=== PATIENT | female | born 1940 | race Caucasian/White ===

== ENCOUNTER 2019-01-03 11:06 | Inpatient (IN) | payer MEDICAID ==
[~2019-01-03] VITALS: Ht 149.9 cm; Wt 66.0 kg
[2019-01-03] MEDS ORDERED: SODIUM CHLORIDE 0.9% 1L BAG IV* STA (11:17)
[2019-01-03] MEDS ORDERED: VANCOMYCIN 1 GM (PMX) 250 ML IVPB ONE (12:00)
[2019-01-03] MEDS ORDERED: CEFEPIME 1GM/50 ML (PMX) 50 ML IVPB ONE (12:00)
[2019-01-03] MEDS ORDERED: METF850T13 PO (12:01)
[2019-01-03] MEDS ORDERED: LOSA25TA12 PO (12:02)
[2019-01-03] MEDS ORDERED: KETOROLAC 15 MG INJ IV STA (12:32)
[2019-01-03] MEDS ORDERED: ACETAMINOPHEN 325 MG TAB PO ONE (13:00)
--- NOTE | 2019-01-03 14:52 | ERD ---
ER Documentation Chief Complaint Chief Complaint FEVER , CHILLS , ABD PAIN , DIARRHEA , ONSET LAST NIGHT HPI This is a 78-year-old female with a past medical history of hypertension, diabetes, CVA with mild residual right-sided deficits, who is presenting with several days of feeling generally unwell with general cramping bloating abdominal pain, nausea without vomiting and diarrhea. Last night, she also developed fever and chills. The patient reports that her diarrhea is loose, watery, brown and nonbloody. She does not endorse any recent travel. She does not endorse eating anything out of the ordinary. The patient was found to be tachycardic and febrile in the emergency department triage area. The patient does not endorse any dysuria or hematuria or urgency or frequency. The patient has had no headache or vision changes. The patient does not endorse neck or back pain. The patient denies lightheadedness or dizziness. The patient has had no chest pain or trouble breathing. The patient has had no focal deficits. The patient has had no weakness or numbness or tingling to the face or extremities. ROS All systems reviewed and are negative except as per history of present illness. Medications Home Meds Reported Medications Losartan Potassium* (Losartan Potassium*) Unknown Strength Tablet, PO BID, TAB PT GETS MEDS FROM [facility] SHE DOSNT KNOW THE STRENGTH 01/03/19 Metformin Hcl* (Metformin Hcl*) 850 Mg Tablet, 850 MG PO WITH BREAKFAST DINNE, #60 TAB 01/03/19 Allergies Allergies: Coded Allergies: No Known Allergy (Unverified , 01/03/19) PMhx/Soc History of Surgery: No Anesthesia Reaction: No Hx Neurological Disorder: Yes (CVA) Hx Respiratory Disorders: No Hx Cardiac Disorders: Yes (Hypertension, diabetes) Hx Psychiatric Problems: No Hx Miscellaneous Medical Probl: No Hx Alcohol Use: No Hx Substance Use: No Hx Tobacco Use: No Smoking Status: Never smoker FmHx Family History: No diabetes Physical Exam Vitals Vital Signs Date Temp Pulse Resp B/P (MAP) Pulse Ox O2 O2 Flow FiO2 Time Delivery Rate 01/03/19 103.4 12:40 01/03/19 103.4 121 24 141/86 94 Room Air 12:25 (104) 01/03/19 101.9 132 18 130/69 92 11:12 (89) Physical Exam Const: No apparent distress, well-developed, well-nourished Head: Normocephalic, Atraumatic Eyes: Normal Conjunctiva. Extraocular movements grossly intact. ENT: Normal External Ears, Nose and Mouth. Neck: Full range of motion. No meningismus. Resp: Clear to auscultation bilaterally, No wheezes, rales or rhonchi Cardio: Regular rhythm. Tachycardia. No murmurs, rubs or gallops Abd: Slightly distended. No tenderness. No guarding or rebound. Normal bowel sounds Skin: No petechiae or rashes Back: No midline tenderness. No CVA tenderness Ext: No cyanosis, or edema Neur: Awake and alert, oriented 4. Cranial nerves intact. Mild right-sided facial droop, chronic. Normal strength, sensation and coordination. Psych: Normal Mood and Affect Result Diagram: 01/03/19 1135 01/03/19 1135 Results 24 hrs Laboratory Tests Test 01/03/19 11:31 01/03/19 11:35 01/03/19 13:40 POC Venous Lactate 3.4 mmol/L White Blood Count 19.7 10^3/ul Red Blood Count 5.32 10^6/ul Hemoglobin 13.0 g/dl Hematocrit 40.7 % Mean Corpuscular Volume 76.5 fl Mean Corpuscular Hemoglobin 24.4 pg Mean Corpuscular 31.9 g/dl Hemoglobin Concent Red Cell Distribution Width 13.4 % Platelet Count 366 10^3/UL Mean Platelet Volume 10.4 fl Immature Granulocytes % 0.500 % Neutrophils % 80.0 % Lymphocytes % 9.2 % Monocytes % 8.5 % Eosinophils % 1.4 % Basophils % 0.4 % Nucleated Red Blood Cells % 0.0 /100WBC Immature Granulocytes # 0.090 10^3/ul Neutrophils # 15.8 10^3/ul Lymphocytes # 1.8 10^3/ul Monocytes # 1.7 10^3/ul Eosinophils # 0.3 10^3/ul Basophils # 0.1 10^3/ul Nucleated Red Blood Cells # 0.0 10^3/ul Prothrombin Time 13.7 Sec Prothrombin Time Ratio 1.1 INR International 1.04 Normalized Ratio Activated Partial Thromboplast 28.7 Sec Time Sodium Level 135 mmol/L Potassium Level 4.4 mmol/L Chloride Level 97 mmol/L Carbon Dioxide Level 22 mmol/L Anion Gap 16 Blood Urea Nitrogen 25 mg/dl Creatinine 1.69 mg/dl Est Glomerular Filtrat mL/min Rate mL/min Glucose Level 301 mg/dl Calcium Level 8.7 mg/dl Total Bilirubin 0.4 mg/dl Direct Bilirubin 0.00 mg/dl Indirect Bilirubin 0.4 mg/dl Aspartate Amino 21 IU/L Transf (AST/SGOT) Alanine 19 IU/L Aminotransferase (ALT/SGPT) Alkaline Phosphatase 136 IU/L Troponin I < 0.012 ng/ml Total Protein 7.7 g/dl Albumin 4.0 g/dl Globulin 3.70 g/dl Albumin/Globulin Ratio 1.08 Urine Color YELLOW Urine Clarity SLIGHTLY CLOUDY Urine pH 5.0 Urine Specific [place] 1.010 Urine Ketones NEGATIVE mg/dL Urine Nitrite POSITIVE mg/dL Urine Bilirubin NEGATIVE mg/dL Urine Urobilinogen NEGATIVE mg/dL Urine Leukocyte Esterase 2+ Raymond/ul Urine Microscopic RBC 2 /HPF Urine Microscopic WBC 18 /HPF Urine Squamous Epithelial Cells MODERATE /HPF Urine Transitional FEW /HPF Epithelial Cells Urine Bacteria MANY /HPF Urine Mucus FEW /HPF Urine Hemoglobin 1+ mg/dL Urine Glucose NEGATIVE mg/dL Urine Total Protein NEGATIVE mg/dl Current Medications Medications Dose Sig/Ilir Start Time Status Last (Trade) Ordered Route PRN Stop Time Admin Dose Reason Admin Sodium 1,910 ml BOLUS OVER 2 01/03/19 DC 01/03/19 Chloride HOURS STAT 11:17 11:36 (NS) IV* 01/03/19 11:22 Vancomycin 250 ml @ ONCE ONCE 01/03/19 DC 01/03/19 HCl 125 mls/hr IVPB 12:00 12:41 01/03/19 13:59 Cefepime HCl 50 ml @ ONCE ONCE 01/03/19 DC 01/03/19 100 mls/hr IVPB 12:00 12:00 01/03/19 12:29 650 mg ONCE ONCE 01/03/19 DC 01/03/19 Acetaminophen PO 13:00 12:40 (Tylenol 01/03/19 13:01 Tab) Ketorolac 15 mg ONCE STAT 01/03/19 DC 01/03/19 Tromethamine IV 12:32 12:40 (Toradol) 01/03/19 12:33 Ondansetron 4 mg ER BRIDGE 01/03/19 HCl (Zofran PRN IV 15:00 Inj) NAUSEA/VOMITI 01/04/19 14:59 NG 650 mg ER BRIDGE 01/03/19 Acetaminophen PRN PO 15:00 (Tylenol .MILD PAIN 01/04/19 14:59 Tab) 1-3 OR TEMP Procedures/MDM MDM The patient's presentation warrants further investigation. Previous medical records, if available, were reviewed. LABS The patient's laboratory testing was obtained and reviewed. No emergent treatment was required unless described below. CBC: Leukocytosis with shift, concerning for a systemic infection. Microcytosis without anemia. Normal platelet count. Chemistry: Elevated BUN and creatinine of unclear chronicity. No E/o severe acidosis or alkalosis or renal failure. Hyperglycemia without DKA. Mildly elevated alkaline phosphatase, likely reactive. PT/INR: No E/o significant coagulopathy Lactate: E/o severe sepsis Troponin: No E/o acute ischemia Urine: E/o acute infection with hematuria EKG EKG read by me: Rate/Rhythm: Sinus tachycardia at 129 bpm Intervals: Normal [place]: Normal Impression: No evidence of acute ischemia or arrhythmia IMAGING Imaging and Radiology interpretation reviewed. CXR FINDINGS: SUPPORT DEVICES: None CARDIAC AND MEDIASTINAL SILHOUETTES: Normal in size . There are thoracic aortic atherosclerotic calcifications. LUNGS AND PLEURAL SPACE: Diminished lung volumes. Left lower lobe scar or discoid atelectasis. No infiltrates, consolidation, pulmonary edema, or pleural effusion. PNEUMOTHORAX: None. OSSEOUS STRUCTURES: Unremarkable. IMPRESSION: No acute pulmonary disease. Left lower lobe scar or discoid atelectasis. Electronically viewed and signed by Tracie Pérez Physician on 01/03/2019 11:48 TREATMENT/DISPOSITION The patient presentation indicates severe sepsis. Patient does have evidence of urinary tract infection. The patient also endorses diarrhea. An intra- abdominal pathology is also possibility. Colitis versus gastroenteritis are certainly possibilities, but I do not feel the patient requires a CT scan at this time. The patient does not have abdominal tenderness on my exam. The patient does not have any evidence of peritonitis. The patient does not have clinical symptoms concerning for mesenteric ischemia or ischemic colitis. The patient does not have right upper quadrant tenderness, and I have low suspicion for gallstones, cholecystitis or biliary colic. The patient does not have any epigastric pain. I have low suspicion for gastritis, PUD or GERD. The patient does not have left upper quadrant tenderness. I have low suspicion for pancreatitis. The patient does not have any right lower quadrant tenderness, or periumbilical tenderness. I have low suspicion for appendicitis. The patient does not have any left lower quadrant tenderness, and I have low suspicion for diverticulosis or diverticulitis. The patient does not have any flank tenderness. The patient does not have gross hematuria. I have decreased suspicion for nephrolithiasis or renal colic. The patient does not have any palpable pulsatile mass or severe abdominal pain radiating to the back. I have low suspicion for aortic aneurysm, dissection or rupture. The patient was treated with a sepsis bolus of IV fluids, antibiotics, tylenol and toradol. SEPSIS NOTE SIRS Criteria: Leukocytosis, fever, tachycardia Infectious source: Intra-abdominal, UTI, diarrhea End organ damage indicated by: Lactate > 2.0 mmol/L SEPSIS MANAGEMENT Time to recognize sepsis: 1117. Time to recognize severe sepsis: 1135. Time to recognize septic shock: No septic shock at this time 3 HOUR BUNDLE Blood cultures x 2 before abx: Yes 30 ml/kg NS bolus Completed Initial lactate 3.4 Repeat lactate Pending CRITICAL CARE Critical care time 34 minutes Emergent fluid management while maintaining close respiratory support. Provision of immediate and broad-spectrum antibiotic therapy. Simultaneous assessment for possible sources in order to direct targeted therapy. Consideration for invasive and chemical support to prevent cardiopulmonary collapse. Critical care time is independent of procedures performed. The patient will be admitted to Panel in accordance with the patient's insurance. The patient was accepted by Dr. Flanagan at 1357PM on 01/03/2019. Disclaimer: Inadvertent spelling and grammatical errors are likely due to EHR/dictation software use and do not reflect on the overall quality of patient care. Note that the electronic time recorded on this note does not necessarily reflect the actual time of the patient encounter. Departure Diagnosis: Primary Impression: Severe sepsis Additional Impressions: UTI (urinary tract infection) Urinary tract infection type: acute cystitis Hematuria presence: with hematuria Qualified Codes: N30.01 - Acute cystitis with hematuria Diarrhea Diarrhea type: presumed infectious Qualified Codes: R19.7 - Diarrhea, unspecified Abdominal bloating Fever Fever type: unspecified Qualified Codes: R50.9 - Fever, unspecified Sinus tachycardia Lactic acidosis Leukocytosis Leukocytosis type: unspecified Qualified Codes: D72.829 - Elevated white blood cell count, unspecified Microcytosis SONYA (acute kidney injury) Hyperglycemia Condition: Serious BLAIRE TINEO MD Jan 03, 2019 14:52
[2019-01-03] MEDS ORDERED: ONDANSETRON 4 MG INJ IV PRN ×2 (15:00→15:30)
[2019-01-03] MEDS ORDERED: ACETAMINOPHEN 325 MG TAB PO PRN ×2 (15:00→15:30)
[2019-01-03] MEDS ORDERED: DOCUSATE SODIUM 100 MG CAP PO PRN (15:30)
[2019-01-03] MEDS ORDERED: LORAZEPAM 2 MG INJ IV PRN (15:30)
[2019-01-03] MEDS ORDERED: morphine 2 MG INJ IV PRN (15:30)
[2019-01-03] MEDS ORDERED: GLUCOSE GEL 15 GRAM TUBE BUCCAL PRN (15:30)
[2019-01-03] MEDS ORDERED: ALBUTEROL/IPRATROPIUM (NEB) 3 ML AMP HHN PRN (15:30)
[2019-01-03] MEDS ORDERED: NITROGLYCERIN (SL) 0.4 MG TAB SL PRN (15:30)
[2019-01-03] MEDS ORDERED: NACL 0.9% 3 ML SYG IV SCH (15:30)
[2019-01-03] MEDS ORDERED: GLUCOSE GEL 15 GRAM TUBE PO PRN ×2 (15:30)
[2019-01-03] MEDS ORDERED: DEXTROSE 50% 50 ML SYRINGE IV PRN ×2 (15:30)
[2019-01-03] MEDS ORDERED: MAGNESIUM HYDROXIDE 30ML CUP PO PRN (15:30)
[2019-01-03] MEDS ORDERED: HYDROCODONE/APAP (5/325) TAB PO PRN (15:30)
[2019-01-03] MEDS ORDERED: GLUCAGON 1 MG INJ IM PRN (15:30)
[2019-01-03 16:37] VITALS: PULSE 107
[2019-01-03 16:49] VITALS: Ht 149.9 cm; Wt 66.0 kg
[2019-01-03] MEDS: INSULIN ASPART [NOVOLOG] 3 ML PEN SC SCH ×2 (17:00→21:16)
[2019-01-03] MEDS: SOD CHLORIDE 0.45% 1,000 ML IV SCH (18:22)
[2019-01-03 19:30] VITALS: BP 127/59; PULSE 99; RESP 18
--- NOTE | 2019-01-03 19:46 | HP ---
DATE OF ADMISSION: 01/03/2019 IDENTIFICATION: This is a 78-year-old female. CHIEF COMPLAINT: Fever, chills and diarrhea and nausea. HISTORY OF PRESENT ILLNESS: A 78-year-old female with past medical history of prior stroke, diabetes , hypertension, questionable history of UTIs in the past who has been having some diarrhea symptoms a long with some nonbilious, nonbloody nausea, vomiting symptoms have been going on for the last couple of days. She also complained of some loose stools, also some positive subjective fevers and chills. She denies any recent sick contacts or travels. Denied any upper or lower GI bleeding, no chest pa in, shortness of breath. She decided to come in to the ER today because of her symptoms. When she c emeka in, she was found with elevated white blood cell count of 19.7. She also had fever of 103.4 and her UA was positive for signs of UTI and was started on antibiotics in the ER. PAST MEDICAL HISTORY: As above. ALLERGIES: NO KNOWN DRUG ALLERGIES. MEDICATIONS AT HOME: 1. Metformin 850 mg b.i.d. 2. Losartan, unknown dose. PAST SURGICAL HISTORY: Apparently none. FAMILY HISTORY: Noncontributory. SOCIAL HISTORY: Negative for smoking or drinking, or IV drug abuse. PHYSICAL EXAMINATION: VITAL SIGNS: T-max 103.4, pulse 121 to 132, respirations 24 to 18, blood pressure 141/86, satting at 94% on room air. GENERAL: The patient lying in bed, appears slightly lethargic. HEENT: Pupils equal, round, and reactive to light. Extraocular muscles intact. NECK: Supple, no thyromegaly. LUNGS: Clear to auscultation bilaterally. CARDIOVASCULAR: S1, S2 heard. No rubs or gallops. Tachycardic heart rate. ABDOMEN: Soft, nontender, nondistended. Normal bowel sounds. No rebound or guarding. MUSCULOSKELETAL: No lower extremity edema bilaterally. NEUROLOGIC: Mild right-sided facial droop. Otherwise, no focal deficits. LABORATORIES: WBC 19.7. The rest of the CBC is normal. The lactic acid was 2.5. Sodium 135, potas sium 4.4, chloride 97, CO2 of 22, BUN of 25, creatinine 1.69, glucose 301. LFTs are normal. Troponi n is negative x1. The UA shows positive nitrites, 2+ leukocyte esterase positive. She had a chest x -ray, no acute pulmonary disease, but there is left lower lobe scar or discoid atelectasis. ASSESSMENT AND PLAN: A 78-year-old female with nausea, vomiting, diarrhea symptoms, fevers and chill s for a couple days prior to admission with signs of sepsis secondary to UTI. 1. Severe sepsis secondary to UTI. She has elevated white blood cell count, fevers and elevated lac tic acid and tachycardia, so admit the patient. Her UA is positive. Follow up final culture results of the urine test. Check TSH, A1c, and lipid panel. We will put her on aggressive IV fluid hydrati on. Put on broad spectrum antibiotics as well. Tylenol p.r.n. pain and fevers. 2. History of diabetes. Follow up A1c. Continue sliding scale insulin. 3. Hypertension. Blood pressure stable. We will hold her home losartan given her mild renal insuff iciency. She will be on hydralazine p.r.n. 4. Renal insufficiency, unknown baseline creatinine. Give IV fluids. Follow up BUN and creatinine levels in the morning. 5. History of arthritis. PT eval and pain control medications p.r.n. 6. Prior history of recurrent UTIs. We will need to investigate and potentially get an infectious d isease consult. Dictated By: ARACELY CHEEMA Conf#: [id number] DID#: [id number]
[2019-01-03 20:00] VITALS: PULSE 102
[2019-01-03] MEDS ORDERED: LOPERAMIDE 2 MG CAP PO ONE (22:00)
[2019-01-03 23:34] VITALS: BP 139/63; PULSE 105; RESP 16
[2019-01-04] VITALS (11 sets, daily range): BP systolic 129–169; BP diastolic 60–80; PULSE 86–104; RESP 16–20
[2019-01-04] MEDS: ACCU-CHEK XX SCH (01:40)
[2019-01-04] MEDS: INSULIN ASPART [NOVOLOG] 3 ML PEN SC SCH ×6 (01:40→20:43)
[2019-01-04] MEDS: SOD CHLORIDE 0.45% 1,000 ML IV SCH ×3 (03:49→20:43)
[2019-01-04] MEDS: LOPERAMIDE 2 MG CAP PO PRN ×2 (04:57→20:43)
[2019-01-04] MEDS ORDERED: MAGNESIUM SULFATE 6 GM in DEXTROSE 5% 100 ML IVPB ONE (06:00)
--- NOTE | 2019-01-04 10:40 | PN ---
Date/Time of Note Date/Time of Note DATE: 01/04/19 TIME: 10:26 Assessment/Plan VTE Prophylaxis Risk score (from Ns)>0 risk: 3 SCD applied (from Ns): Yes Pharmacological prophylaxis: other Lines/Catheters IV Catheter Type (from Nrs): Peripheral IV Assessment/Plan Hospital Course S: Patient more awake and alert, had no acute events overnight. O: VS- see below PHYSICAL EXAMINATION: GENERAL: lying in bed, appears slightly lethargic. HEENT: Pupils equal, round, and reactive to light. Extraocular muscles intact. NECK: Supple, no thyromegaly. LUNGS: Clear to auscultation bilaterally. CARDIOVASCULAR: S1, S2 heard. No rubs or gallops. Tachycardic heart rate. ABDOMEN: Soft, nontender, nondistended. Normal bowel sounds. No rebound or guarding. MUSCULOSKELETAL: No lower extremity edema bilaterally. NEUROLOGIC: Mild right-sided facial droop. Otherwise, no focal deficits. ASSESSMENT AND PLAN: 78-year-old female with nausea, vomiting, diarrhea symptoms, fevers and chills for a couple days prior to admission with signs of sepsis secondary to UTI. 1. Severe sepsis secondary to UTI -slowly improving, no fevers overnight, white blood cell count trending down. Patient presented with white blood cell count, fevers and elevated lactic acid and tachycardia. Her UA is positive. - Follow up final culture results of the urine test. - For now continue IV fluid hydration, broad spectrum antibiotics as well. Tylenol p.r.n. pain and fevers. -Replete low electrolytes including magnesium today 2. History of diabetes: A1c= 8.6. - Continue sliding scale insulin. 3. Hypertension. Blood pressure stable. -Monitor, continue to hold home losartan given her mild renal insufficiency. She will be on hydralazine p.r.n. 4. Renal insufficiency-improving, unknown baseline creatinine. -Continue IV fluids. Follow up BUN and creatinine levels in the morning. 5. History of arthritis. PT eval and pain control medications p.r.n. 6. Prior history of recurrent UTIs. We will need to investigate and potentially get an infectious disease consult. Result Diagram: 01/04/19 0347 01/04/19 0347 Results 24hrs Laboratory Tests Test 01/03/19 11:31 01/03/19 11:35 01/03/19 13:40 01/03/19 14:35 POC Venous 3.4 *H Lactate White Blood Count 19.7 H Red Blood Count 5.32 Hemoglobin 13.0 Hematocrit 40.7 Mean Corpuscular 76.5 L Volume Mean Corpuscular 24.4 L Hemoglobin Mean Corpuscular 31.9 L Hemoglobin Concen t Red Cell 13.4 Distribution Width Platelet Count 366 Mean Platelet 10.4 Volume Immature 0.500 H Granulocytes % Neutrophils % 80.0 H Lymphocytes % 9.2 L Monocytes % 8.5 Eosinophils % 1.4 Basophils % 0.4 Nucleated Red 0.0 Blood Cells % Immature 0.090 H Granulocytes # Neutrophils # 15.8 H Lymphocytes # 1.8 Monocytes # 1.7 H Eosinophils # 0.3 Basophils # 0.1 Nucleated Red 0.0 Blood Cells # Prothrombin Time 13.7 Prothrombin Time 1.1 Ratio INR International 1.04 Normalized Ratio Activated 28.7 Partial Thrombopl ast Time Sodium Level 135 Potassium Level 4.4 Chloride Level 97 Carbon Dioxide 22 Level Anion Gap 16 H Blood Urea 25 H Nitrogen Creatinine 1.69 H Est Glomerular Filtrat Rate mL/min Glucose Level 301 H Calcium Level 8.7 Total Bilirubin 0.4 Direct Bilirubin 0.00 Indirect 0.4 Bilirubin Aspartate Amino 21 Transf (AST/SGOT) Alanine 19 Aminotransferase (ALT/SGPT) Alkaline 136 H Phosphatase Troponin I < 0.012 Total Protein 7.7 Albumin 4.0 Globulin 3.70 H Albumin/Globulin 1.08 Ratio Urine Color YELLOW Urine Clarity SLIGHTLY CLOUDY A Urine pH 5.0 Urine Specific 1.010 [place] Urine Ketones NEGATIVE Urine Nitrite POSITIVE A Urine Bilirubin NEGATIVE Urine NEGATIVE Urobilinogen Urine Leukocyte 2+ H Esterase Urine Microscopic 2 RBC Urine Microscopic 18 H WBC Urine Squamous MODERATE Epithelial Cells Urine FEW A Transitional Epithelial Cells Urine Bacteria MANY A Urine Mucus FEW A Urine Hemoglobin 1+ H Urine Glucose NEGATIVE Urine Total NEGATIVE Protein Lactic Acid Level 2.5 *H Test 01/03/19 15:24 01/03/19 18:02 01/03/19 19:39 01/03/19 20:41 Lactic Acid Level 2.3 *H 2.7 *H Bedside Glucose 191 202 Iron Level 40 Total Iron 290 Binding Capacity Percent Iron 14 L Saturation Test 01/03/19 23:13 01/04/19 01:31 01/04/19 03:47 01/04/19 05:01 Lactic Acid Level 1.8 1.3 Bedside Glucose 174 143 White Blood Count 16.5 H Red Blood Count 4.49 Hemoglobin 10.9 L Hematocrit 33.9 L Mean Corpuscular 75.5 L Volume Mean Corpuscular 24.3 L Hemoglobin Mean Corpuscular 32.2 Hemoglobin Concen t Red Cell 13.6 Distribution Width Platelet Count 298 Mean Platelet 10.5 H Volume Immature 0.700 H Granulocytes % Neutrophils % Segmented 24 L Neutrophils % (Manual) Band Neutrophils 44 H % (Manual) Lymphocytes % Lymphocytes % 20 (Manual) Monocytes % Monocytes % 10 (Manual) Eosinophils % Eosinophils % 1 (Manual) Basophils % Basophils % 1 (Manual) Nucleated Red 0.0 Blood Cells % Immature 0.110 H Granulocytes # Neutrophils # Neutrophils # 5.1 (Manual) Band Neutrophils 7.2 H # Lymphocytes 3.3 H (Manual) Lymphocytes # Monocytes # Monocytes # 1.6 H (Manual) Eosinophils # Basophils # Basophils # 0.1 H (Manual) Nucleated Red Blood Cells # Platelet Estimate NORMAL Poikilocytosis 1+ Anisocytosis 1+ Microcytosis 1+ Sodium Level 138 Potassium Level 5.0 Chloride Level 103 Carbon Dioxide 24 Level Anion Gap 11 Blood Urea 24 H Nitrogen Creatinine 1.33 H Est Glomerular Filtrat Rate mL/min Glucose Level 163 # Hemoglobin A1c 8.6 H Calcium Level 8.2 L Phosphorus Level 3.8 Magnesium Level 1.1 L Triglycerides 146 Level Cholesterol Level 78 L LDL Cholesterol, 32 Calculated HDL Cholesterol 17 L Cholesterol/HDL 4.5 Ratio Thyroid Pending Stimulating Hormone (TSH) Test 01/04/19 07:20 01/04/19 08:17 Lactic Acid Level 1.0 Bedside Glucose 149 Exam/Review of Systems Exam Vitals Vital Signs Date Temp Pulse Resp B/P (MAP) Pulse Ox O2 O2 Flow FiO2 Time Delivery Rate 01/04/19 100 09:10 01/04/19 97.7 20 132/67 94 Room Air 07:41 (88) Intake and Output 01/03/19 01/03/19 01/04/19 1515:00 23:00 07:00 IntakeIntake Total 1960 ml 0 ml 1000 ml BalanceBalance 1960 ml 0 ml 1000 ml Results Results 24hrs Laboratory Tests Test 01/03/19 11:31 01/03/19 11:35 01/03/19 13:40 01/03/19 14:35 POC Venous 3.4 *H Lactate White Blood Count 19.7 H Red Blood Count 5.32 Hemoglobin 13.0 Hematocrit 40.7 Mean Corpuscular 76.5 L Volume Mean Corpuscular 24.4 L Hemoglobin Mean Corpuscular 31.9 L Hemoglobin Concen t Red Cell 13.4 Distribution Width Platelet Count 366 Mean Platelet 10.4 Volume Immature 0.500 H Granulocytes % Neutrophils % 80.0 H Lymphocytes % 9.2 L Monocytes % 8.5 Eosinophils % 1.4 Basophils % 0.4 Nucleated Red 0.0 Blood Cells % Immature 0.090 H Granulocytes # Neutrophils # 15.8 H Lymphocytes # 1.8 Monocytes # 1.7 H Eosinophils # 0.3 Basophils # 0.1 Nucleated Red 0.0 Blood Cells # Prothrombin Time 13.7 Prothrombin Time 1.1 Ratio INR International 1.04 Normalized Ratio Activated 28.7 Partial Thrombopl ast Time Sodium Level 135 Potassium Level 4.4 Chloride Level 97 Carbon Dioxide 22 Level Anion Gap 16 H Blood Urea 25 H Nitrogen Creatinine 1.69 H Est Glomerular Filtrat Rate mL/min Glucose Level 301 H Calcium Level 8.7 Total Bilirubin 0.4 Direct Bilirubin 0.00 Indirect 0.4 Bilirubin Aspartate Amino 21 Transf (AST/SGOT) Alanine 19 Aminotransferase (ALT/SGPT) Alkaline 136 H Phosphatase Troponin I < 0.012 Total Protein 7.7 Albumin 4.0 Globulin 3.70 H Albumin/Globulin 1.08 Ratio Urine Color YELLOW Urine Clarity SLIGHTLY CLOUDY A Urine pH 5.0 Urine Specific 1.010 [place] Urine Ketones NEGATIVE Urine Nitrite POSITIVE A Urine Bilirubin NEGATIVE Urine NEGATIVE Urobilinogen Urine Leukocyte 2+ H Esterase Urine Microscopic 2 RBC Urine Microscopic 18 H WBC Urine Squamous MODERATE Epithelial Cells Urine FEW A Transitional Epithelial Cells Urine Bacteria MANY A Urine Mucus FEW A Urine Hemoglobin 1+ H Urine Glucose NEGATIVE Urine Total NEGATIVE Protein Lactic Acid Level 2.5 *H Test 01/03/19 15:24 01/03/19 18:02 01/03/19 19:39 01/03/19 20:41 Lactic Acid Level 2.3 *H 2.7 *H Bedside Glucose 191 202 Iron Level 40 Total Iron 290 Binding Capacity Percent Iron 14 L Saturation Test 01/03/19 23:13 01/04/19 01:31 01/04/19 03:47 01/04/19 05:01 Lactic Acid Level 1.8 1.3 Bedside Glucose 174 143 White Blood Count 16.5 H Red Blood Count 4.49 Hemoglobin 10.9 L Hematocrit 33.9 L Mean Corpuscular 75.5 L Volume Mean Corpuscular 24.3 L Hemoglobin Mean Corpuscular 32.2 Hemoglobin Concen t Red Cell 13.6 Distribution Width Platelet Count 298 Mean Platelet 10.5 H Volume Immature 0.700 H Granulocytes % Neutrophils % Segmented 24 L Neutrophils % (Manual) Band Neutrophils 44 H % (Manual) Lymphocytes % Lymphocytes % 20 (Manual) Monocytes % Monocytes % 10 (Manual) Eosinophils % Eosinophils % 1 (Manual) Basophils % Basophils % 1 (Manual) Nucleated Red 0.0 Blood Cells % Immature 0.110 H Granulocytes # Neutrophils # Neutrophils # 5.1 (Manual) Band Neutrophils 7.2 H # Lymphocytes 3.3 H (Manual) Lymphocytes # Monocytes # Monocytes # 1.6 H (Manual) Eosinophils # Basophils # Basophils # 0.1 H (Manual) Nucleated Red Blood Cells # Platelet Estimate NORMAL Poikilocytosis 1+ Anisocytosis 1+ Microcytosis 1+ Sodium Level 138 Potassium Level 5.0 Chloride Level 103 Carbon Dioxide 24 Level Anion Gap 11 Blood Urea 24 H Nitrogen Creatinine 1.33 H Est Glomerular Filtrat Rate mL/min Glucose Level 163 # Hemoglobin A1c 8.6 H Calcium Level 8.2 L Phosphorus Level 3.8 Magnesium Level 1.1 L Triglycerides 146 Level Cholesterol Level 78 L LDL Cholesterol, 32 Calculated HDL Cholesterol 17 L Cholesterol/HDL 4.5 Ratio Thyroid Pending Stimulating Hormone (TSH) Test 01/04/19 07:20 01/04/19 08:17 Lactic Acid Level 1.0 Bedside Glucose 149 Medications Medication Current Medications Ondansetron HCl (Zofran Inj) 4 mg ER BRIDGE PRN IV NAUSEA/VOMITING; Start 01/03/19 at 15:00; Stop 01/04/19 at 14:59 Acetaminophen (Tylenol Tab) 650 mg ER BRIDGE PRN PO .MILD PAIN 1-3 OR TEMP; Start 01/03/19 at 15:00; Stop 01/04/19 at 14:59 IV Flush (NS 3 ml) 3 ml PER PROTOCOL IV ; Start 01/03/19 at 15:30 Ondansetron HCl (Zofran Inj) 4 mg Q6H PRN IV NAUSEA/VOMITING; Start 01/03/19 at 15:30 Acetaminophen (Tylenol Tab) 650 mg Q6H PRN PO .PAIN 1-3 OR TEMP; Start 01/03/19 at 15:30 Acetaminophen/ Hydrocodone Bitart ([place] (5/325)) 1 tab Q6H PRN PO .MOD PAIN 4- 6; Start 01/03/19 at 15:30 Morphine Sulfate (morphine) 2 mg Q4H PRN IV .SEVERE PAIN 7-10 Last administered on 01/03/19at 19:21; Admin Dose 2 MG; Start 01/03/19 at 15:30 Docusate Sodium (Colace) 100 mg Q12H PRN PO .CONSTIPATION; Start 01/03/19 at 15:30 Magnesium Hydroxide (Milk Of Mag) 30 ml DAILY PRN PO .CONSTIPATION; Start 01/03/19 at 15:30 Sodium Chloride 1,000 ml @ 100 mls/hr Q10H IV Last administered on 01/04/19at 03:49; Admin Dose 100 MLS/HR; Start 01/03/19 at 15:14 Lorazepam (Ativan) 0.5 mg Q6H PRN IV ANXIETY; Start 01/03/19 at 15:30 Albuterol/ Ipratropium (Duoneb) 3 ml Q4H RESP THERAPY PRN HHN SHORTNESS OF BREATH; Start 01/03/19 at 15:30 Hydralazine HCl (Apresoline) 10 mg Q6H PRN IV ELEVATED BLOOD PRESSURE; Start 01/03/19 at 15:30 Nitroglycerin (Nitroglycerin (Sl Tab) 0.4 Mg) 1 tab Q5M PRN SL ANGINA; Start 01/03/19 at 15:30 Cefepime HCl 50 ml @ 100 mls/hr Q24H IVPB ; Start 01/04/19 at 12:00 Diagnostic Test (Pha) (Accu-Chek) 1 ea 02 XX Last administered on 01/04/19at 01:40; Admin Dose 1 EA; Start 01/04/19 at 02:00 Insulin Aspart (Novolog Insulin Pen) NOVOLOG *MILD* ALGORI... Q4 SC Last administered on 01/04/19at 08:44; Admin Dose 1 UNIT; Start 01/03/19 at 17:00 Miscellaneous Information 1 ea NOTE XX ; Start 01/03/19 at 15:30 Glucose (Glutose) 15 gm Q15M PRN PO DECREASED GLUCOSE; Start 01/03/19 at 15:30 Glucose (Glutose) 22.5 gm Q15M PRN PO DECREASED GLUCOSE; Start 01/03/19 at 15:30 Dextrose (D50w Syringe) 25 ml Q15M PRN IV DECREASED GLUCOSE; Start 01/03/19 at 15:30 Dextrose (D50w Syringe) 50 ml Q15M PRN IV DECREASED GLUCOSE; Start 01/03/19 at 15:30 Glucagon (Glucagen) 1 mg Q15M PRN IM DECREASED GLUCOSE; Start 01/03/19 at 15:30 Glucose (Glutose) 15 gm Q15M PRN BUCCAL DECREASED GLUCOSE; Start 01/03/19 at 15:30 Loperamide HCl (Imodium Cap) 2 mg PRN PRN PO DIARRHEA Last administered on 01/04/19at 04:57; Admin Dose 2 MG; Start 01/03/19 at 22:00 Magnesium Sulfate 6 gm/Dextrose 112 ml @ 18.67 mls/ hr ONCE ONCE IVPB Last administered on 01/04/19at 06:34; Admin Dose 18.67 MLS/HR; Start 01/04/19 at 06:00; Stop 01/04/19 at 11:59 ARACELY BRENNER Jan 04, 2019 10:37
[2019-01-04] MEDS: CEFEPIME 2GM/50 ML (PMX) 50 ML IVPB SCH (13:49)
[2019-01-05] VITALS (14 sets, daily range): BP systolic 143–193; BP diastolic 68–99; PULSE 81–101; RESP 16–20
[2019-01-05] MEDS: ACCU-CHEK XX SCH (02:00)
[2019-01-05] MEDS: SOD CHLORIDE 0.45% 1,000 ML IV SCH ×2 (06:15→17:14)
[2019-01-05] MEDS ORDERED: INSULIN ASPART [NOVOLOG] 3 ML PEN SC SCH (07:00)
[2019-01-05] MEDS: Insulin NOVOLOG SS MILD Algorithm (SS with meals and bedtime) SC SCH ×4 (08:00→21:40)
[2019-01-05] MEDS: hydrALAzine 20 MG INJ IV PRN (11:32)
[2019-01-05] MEDS: CEFEPIME 2GM/50 ML (PMX) 50 ML IVPB SCH (14:15)
--- NOTE | 2019-01-05 15:55 | PN ---
Date/Time of Note Date/Time of Note DATE: 01/05/19 TIME: 15:52 Assessment/Plan VTE Prophylaxis Risk score (from Ns)>0 risk: 3 SCD applied (from Ns): No SCD contraindicated: low risk/ambulating Pharmacological prophylaxis: NA/contraindicated Pharm contraindication: low risk/ambulating Lines/Catheters IV Catheter Type (from [facility]): Peripheral IV Assessment/Plan Assessment/Plan 78-year-old female with nausea, vomiting, diarrhea symptoms, fevers and chills for a couple days prior to admission with signs of sepsis secondary to UTI. 1. Severe sepsis secondary to UTI -slowly improving, no fevers overnight, white blood cell count trending down. Patient presented with white blood cell count, fevers and elevated lactic acid and tachycardia. Her UA is positive. - Follow up final culture results of the urine test. - For now continue IV fluid hydration, broad spectrum antibiotics as well. Tylenol p.r.n. pain and fevers. -Replete low electrolytes including magnesium today 2. History of diabetes: A1c= 8.6. - Continue sliding scale insulin. 3. Hypertension. Blood pressure stable. -Monitor, continue to hold home losartan given her mild renal insufficiency. She will be on hydralazine p.r.n. 4. Renal insufficiency-improving, unknown baseline creatinine. -Continue IV fluids. Follow up BUN and creatinine levels in the morning. 5. History of arthritis. PT eval and pain control medications p.r.n. 6. Prior history of recurrent UTIs. Result Diagram: 01/05/199 01/05/199 Subjective 24 Hr Interval Summary Free Text/Dictation No acute overnight events. Patient sitting up eating lunch with family. Feels very well, wants to go home. Exam/Review of Systems Exam Vitals Vital Signs Date Temp Pulse Resp B/P (MAP) Pulse Ox O2 O2 Flow FiO2 Time Delivery Rate 01/05/19 97.9 95 18 176/90 95 Room Air 15:00 (118) Intake and Output 01/04/19 01/04/19 01/05/19 1515:00 23:00 07:00 IntakeIntake Total 240 ml 540 ml 1000 ml BalanceBalance 240 ml 540 ml 1000 ml Exam GENERAL: Sitting up in bed awake and alert. HEENT: Pupils equal, round, and reactive to light. Extraocular muscles intact. NECK: Supple, no thyromegaly. LUNGS: Clear to auscultation bilaterally. CARDIOVASCULAR: S1, S2 heard. No rubs or gallops. Tachycardic heart rate. ABDOMEN: Soft, nontender, nondistended. Normal bowel sounds. No rebound or guarding. MUSCULOSKELETAL: No lower extremity edema bilaterally. NEUROLOGIC: Mild right-sided facial droop. Otherwise, no focal deficits. Results Results 24hrs Laboratory Tests Test 01/04/19 17:47 01/04/19 20:42 01/05/19 04:49 01/05/19 07:58 Bedside Glucose 144 95 140 White Blood Count 14.6 H Red Blood Count 4.88 Hemoglobin 12.0 Hematocrit 36.5 L Mean Corpuscular 74.8 L Volume Mean Corpuscular 24.6 L Hemoglobin Mean Corpuscular 32.9 Hemoglobin Concent Red Cell 13.4 Distribution Width Platelet Count 385 # Mean Platelet Volume 10.4 Immature 0.500 H Granulocytes % Neutrophils % 72.3 Lymphocytes % 14.6 L Monocytes % 7.0 Eosinophils % 5.1 Basophils % 0.5 Nucleated Red Blood 0.0 Cells % Immature 0.070 H Granulocytes # Neutrophils # 10.5 H Lymphocytes # 2.1 Monocytes # 1.0 H Eosinophils # 0.8 H Basophils # 0.1 Nucleated Red Blood 0.0 Cells # Sodium Level 138 Potassium Level 4.1 Chloride Level 105 Carbon Dioxide Level 20 L Anion Gap 13 Blood Urea Nitrogen 17 Creatinine 1.14 H Est Glomerular Filtrat Rate mL/min Glucose Level 141 Calcium Level 8.5 Phosphorus Level 4.0 Magnesium Level 2.3 # Test 01/05/19 11:37 Bedside Glucose 157 Medications Medication Current Medications IV Flush (NS 3 ml) 3 ml PER PROTOCOL IV ; Start 01/03/19 at 15:30 Ondansetron HCl (Zofran Inj) 4 mg Q6H PRN IV NAUSEA/VOMITING; Start 01/03/19 at 15:30 Acetaminophen (Tylenol Tab) 650 mg Q6H PRN PO .PAIN 1-3 OR TEMP Last administered on 01/05/19at 02:27; Admin Dose 650 MG; Start 01/03/19 at 15:30 Acetaminophen/ Hydrocodone Bitart ([place] (5/325)) 1 tab Q6H PRN PO .MOD PAIN 4- 6; Start 01/03/19 at 15:30 Morphine Sulfate (morphine) 2 mg Q4H PRN IV .SEVERE PAIN 7-10 Last administered on 01/03/19at 19:21; Admin Dose 2 MG; Start 01/03/19 at 15:30 Docusate Sodium (Colace) 100 mg Q12H PRN PO .CONSTIPATION; Start 01/03/19 at 15:30 Magnesium Hydroxide (Milk Of Mag) 30 ml DAILY PRN PO .CONSTIPATION; Start 01/03/19 at 15:30 Sodium Chloride 1,000 ml @ 100 mls/hr Q10H IV Last administered on 01/05/19at 06:15; Admin Dose 100 MLS/HR; Start 01/03/19 at 15:14 Lorazepam (Ativan) 0.5 mg Q6H PRN IV ANXIETY; Start 01/03/19 at 15:30 Albuterol/ Ipratropium (Duoneb) 3 ml Q4H RESP THERAPY PRN HHN SHORTNESS OF BREATH; Start 01/03/19 at 15:30 Hydralazine HCl (Apresoline) 10 mg Q6H PRN IV ELEVATED BLOOD PRESSURE Last administered on 01/05/19at 11:32; Admin Dose 10 MG; Start 01/03/19 at 15:30 Nitroglycerin (Nitroglycerin (Sl Tab) 0.4 Mg) 1 tab Q5M PRN SL ANGINA; Start 01/03/19 at 15:30 Cefepime HCl 50 ml @ 100 mls/hr Q24H IVPB Last administered on 01/05/19at 14:15; Admin Dose 100 MLS/HR; Start 01/04/19 at 12:00 Diagnostic Test (Pha) (Accu-Chek) 1 ea 02 XX Last administered on 01/04/19at 01:40; Admin Dose 1 EA; Start 01/04/19 at 02:00 Miscellaneous Information 1 ea NOTE XX ; Start 01/03/19 at 15:30 Glucose (Glutose) 15 gm Q15M PRN PO DECREASED GLUCOSE; Start 01/03/19 at 15:30 Glucose (Glutose) 22.5 gm Q15M PRN PO DECREASED GLUCOSE; Start 01/03/19 at 15:30 Dextrose (D50w Syringe) 25 ml Q15M PRN IV DECREASED GLUCOSE; Start 6/22/19 at 15:30 Dextrose (D50w Syringe) 50 ml Q15M PRN IV DECREASED GLUCOSE; Start 01/03/19 at 15:30 Glucagon (Glucagen) 1 mg Q15M PRN IM DECREASED GLUCOSE; Start 01/03/19 at 15:30 Glucose (Glutose) 15 gm Q15M PRN BUCCAL DECREASED GLUCOSE; Start 01/03/19 at 15:30 Loperamide HCl (Imodium Cap) 2 mg PRN PRN PO DIARRHEA Last administered on 01/04/19at 20:43; Admin Dose 2 MG; Start 01/03/19 at 22:00 Insulin Aspart (Novolog Insulin Pen) (Adult SC Insulin - Mild Algorithm)... AC MEALS AND BEDTIME SC Last administered on 01/05/19at 12:00; Admin Dose 1 UNIT; Start 01/05/19 at 07:00 LISA CHAVEZ MD Jan 05, 2019 15:55
[2019-01-05] MEDS: LOSARTAN 50 MG TAB PO SCH (21:37)
[2019-01-06] VITALS (9 sets, daily range): BP systolic 160–187; BP diastolic 75–98; PULSE 83–107; RESP 16–18
[2019-01-06] MEDS: hydrALAzine 20 MG INJ IV PRN ×2 (00:50→12:08)
[2019-01-06] MEDS: ACCU-CHEK XX SCH (02:00)
[2019-01-06] MEDS: SOD CHLORIDE 0.45% 1,000 ML IV SCH ×2 (03:41→13:14)
[2019-01-06] MEDS: Insulin NOVOLOG SS MILD Algorithm (SS with meals and bedtime) SC SCH ×4 (08:12→20:52)
[2019-01-06] MEDS: LOSARTAN 50 MG TAB PO SCH ×2 (08:54→20:44)
[2019-01-06] MEDS: CEFEPIME 2GM/50 ML (PMX) 50 ML IVPB SCH (12:08)
--- NOTE | 2019-01-06 17:57 | PN ---
Date/Time of Note Date/Time of Note DATE: 01/06/19 TIME: 17:53 Assessment/Plan VTE Prophylaxis Risk score (from Ns)>0 risk: 3 SCD applied (from Ns): Yes Pharmacological prophylaxis: NA/contraindicated Pharm contraindication: low risk/ambulating Lines/Catheters IV Catheter Type (from Nrs): Peripheral IV Assessment/Plan Assessment/Plan 78-year-old female with nausea, vomiting, diarrhea symptoms, fevers and chills for a couple days prior to admission with signs of sepsis secondary to UTI. 1. Severe sepsis secondary to UTI -slowly improving, no fevers overnight, white blood cell count trending down. Patient presented with white blood cell count, fevers and elevated lactic acid and tachycardia. Her UA is positive. - Urine culture growing ESBL E Coli. Per ID, will plan for 3 days of ertapenem. 2. History of diabetes: A1c= 8.6. - Continue sliding scale insulin. 3. Hypertension. Blood pressure stable. -Monitor, continue to hold home losartan given her mild renal insufficiency. She will be on hydralazine p.r.n. 4. Renal insufficiency-improving, unknown baseline creatinine. -Continue IV fluids. Follow up BUN and creatinine levels in the morning. 5. History of arthritis. PT eval and pain control medications p.r.n. 6. Prior history of recurrent UTIs. Result Diagram: 01/06/19 0505 01/06/19 0505 Subjective 24 Hr Interval Summary Free Text/Dictation No acute overnight events. Patient feeling well. Exam/Review of Systems Exam Vitals Vital Signs Date Temp Pulse Resp B/P (MAP) Pulse Ox O2 O2 Flow FiO2 Time Delivery Rate 01/06/19 107 17:15 01/06/19 97.9 17 160/98 95 15:36 (118) 01/06/19 Room Air 04:00 Intake and Output 01/05/19 01/05/19 01/06/19 1515:00 23:00 07:00 IntakeIntake Total 760 ml 200 ml 1300 ml OutputOutput Total 800 ml BalanceBalance 760 ml 200 ml 500 ml Exam GENERAL: Sitting up in bed awake and alert. HEENT: Pupils equal, round, and reactive to light. Extraocular muscles intact. NECK: Supple, no thyromegaly. LUNGS: Clear to auscultation bilaterally. CARDIOVASCULAR: S1, S2 heard. No rubs or gallops. Tachycardic heart rate. ABDOMEN: Soft, nontender, nondistended. Normal bowel sounds. No rebound or guarding. MUSCULOSKELETAL: No lower extremity edema bilaterally. Results Results 24hrs Laboratory Tests Test 01/05/19 21:35 01/06/19 01:32 01/06/19 05:05 01/06/19 07:47 Bedside Glucose 209 176 235 H White Blood Count 10.6 # Red Blood Count 5.40 Hemoglobin 13.0 Hematocrit 40.3 Mean Corpuscular 74.6 L Volume Mean Corpuscular 24.1 L Hemoglobin Mean Corpuscular 32.3 Hemoglobin Concent Red Cell 13.5 Distribution Width Platelet Count 474 #H Mean Platelet Volume 10.4 Immature 1.000 H Granulocytes % Neutrophils % 73.9 Lymphocytes % 13.9 L Monocytes % 8.4 Eosinophils % 2.0 Basophils % 0.8 Nucleated Red Blood 0.0 Cells % Immature 0.110 H Granulocytes # Neutrophils # 7.8 H Lymphocytes # 1.5 Monocytes # 0.9 Eosinophils # 0.2 Basophils # 0.1 Nucleated Red Blood 0.0 Cells # Sodium Level 137 Potassium Level 4.0 Chloride Level 100 Carbon Dioxide Level 23 Anion Gap 14 H Blood Urea Nitrogen 15 Creatinine 1.02 H Est Glomerular Filtrat Rate mL/min Glucose Level 264 #H Calcium Level 9.3 Test 01/06/19 12:06 01/06/19 17:33 Bedside Glucose 273 H 273 H Medications Medication Current Medications IV Flush (NS 3 ml) 3 ml PER PROTOCOL IV ; Start 01/03/19 at 15:30 Ondansetron HCl (Zofran Inj) 4 mg Q6H PRN IV NAUSEA/VOMITING; Start 01/03/19 at 15:30 Acetaminophen (Tylenol Tab) 650 mg Q6H PRN PO .PAIN 1-3 OR TEMP Last administered on 01/05/19at 02:27; Admin Dose 650 MG; Start 01/03/19 at 15:30 Acetaminophen/ Hydrocodone Bitart ([place] (5/325)) 1 tab Q6H PRN PO .MOD PAIN 4- 6; Start 01/03/19 at 15:30 Morphine Sulfate (morphine) 2 mg Q4H PRN IV .SEVERE PAIN 7-10 Last administered on 01/03/19at 19:21; Admin Dose 2 MG; Start 01/03/19 at 15:30 Docusate Sodium (Colace) 100 mg Q12H PRN PO .CONSTIPATION; Start 01/03/19 at 15:30 Magnesium Hydroxide (Milk Of Mag) 30 ml DAILY PRN PO .CONSTIPATION; Start 01/03/19 at 15:30 Lorazepam (Ativan) 0.5 mg Q6H PRN IV ANXIETY; Start 01/03/19 at 15:30 Albuterol/ Ipratropium (Duoneb) 3 ml Q4H RESP THERAPY PRN HHN SHORTNESS OF BREATH; Start 01/03/19 at 15:30 Hydralazine HCl (Apresoline) 10 mg Q6H PRN IV ELEVATED BLOOD PRESSURE Last ad ministered on 01/06/19at 12:08; Admin Dose 10 MG; Start 01/03/19 at 15:30 Nitroglycerin (Nitroglycerin (Sl Tab) 0.4 Mg) 1 tab Q5M PRN SL ANGINA; Start 01/03/19 at 15:30 Cefepime HCl 50 ml @ 100 mls/hr Q24H IVPB Last administered on 01/06/19at 12:08; Admin Dose 100 MLS/HR; Start 01/04/19 at 12:00 Diagnostic Test (Pha) (Accu-Chek) 1 ea 02 XX Last administered on 01/04/19at 01:40; Admin Dose 1 EA; Start 01/04/19 at 02:00 Miscellaneous Information 1 ea NOTE XX ; Start 01/03/19 at 15:30 Glucose (Glutose) 15 gm Q15M PRN PO DECREASED GLUCOSE; Start 01/03/19 at 15:30 Glucose (Glutose) 22.5 gm Q15M PRN PO DECREASED GLUCOSE; Start 01/03/19 at 15:30 Dextrose (D50w Syringe) 25 ml Q15M PRN IV DECREASED GLUCOSE; Start 01/03/19 at 15:30 Dextrose (D50w Syringe) 50 ml Q15M PRN IV DECREASED GLUCOSE; Start 01/03/19 at 15:30 Glucagon (Glucagen) 1 mg Q15M PRN IM DECREASED GLUCOSE; Start 01/03/19 at 15:30 Glucose (Glutose) 15 gm Q15M PRN BUCCAL DECREASED GLUCOSE; Start 01/03/19 at 15:30 Loperamide HCl (Imodium Cap) 2 mg PRN PRN PO DIARRHEA Last administered on 01/04/19at 20:43; Admin Dose 2 MG; Start 01/03/19 at 22:00 Insulin Aspart (Novolog Insulin Pen) (Adult SC Insulin - Mild Algorithm)... AC MEALS AND BEDTIME SC Last administered on 01/06/19 12:31; Admin Dose 4 UNIT; Start 01/05/19 at 07:00 Losartan Potassium (Cozaar) 50 mg BID PO Last administered on 01/06/19at 08:54; Admin Dose 50 MG; Start 01/05/19 at 21:00 LISA CHAVEZ MD Jan 06, 2019 17:57
--- NOTE | 2019-01-06 18:14 | CONS ---
Assessment/Plan Assessment/Plan Hospital Course (Demo Recall) assessment/impression - severe sepsis due to UTI - UTI due to ESBL+E. coli, based on her history, community acquired case (no risk factors for acquiring MDROs) - DM - HTN recommendations - I recommend d/c cefepime and use IV ertapenem x3 days. Ertapenem IM is an option but may not be comfortable - I do not recommend nitrofurantoin for this Pt - I discussed prevention of UTI, risk of acquiring MDROs and their prevention were discussed with Pt and her daughter - contact isolation - I discussed the management with Pt, her daughter in law, VILLA Rodriguez and Dr. Chavez Consultation Date/Type/Reason Admit Date/Time Jan 03, 2019 at 16:17 Initial Consult Date Type of Consult ID Reason for Consultation UTI and sepsis due to ESBL+ Requesting Provider: LISA CHAVEZ MD Date/Time of Note DATE: 01/06/19 TIME: 17:55 24 HR Interval Summary Free Text/Dictation This is a 78 yo female with DM and HTN who came to [facility] from [facility] to visit her son and his family. Pt was doing well initially. Then a few days prior to presentation (01/03/2019) Pt started having diffuse myalgia and fever. She came to ER on 01/03/2019 as a result. She was febrile, tachycardic. Her initial lab was significant for leukocytosis and lactic acidosis >2. Her urinalysis showed pyuria. She was started on empiric cefepime. Today her urine culture was finalized ESBL+E. coli that was sensitive to nitrofurantoin with KAYLA 32 and to meropenem. Pt is doing better. She is no longer febrile. She denies abdominal pain, dysuria or flank pain. With regard to acquisition of ESBL+E. coli, Pt and her daughter in law denied recent h/o UTI or receipt of antibiotics. She denies h/o being in the hospital setting recently either. Dr. Chavez requested if Pt could be discharged home with PO nitrofurantoin. Constitutional: improved; No febrile Detailed Summary Eyes: no complaints ENT: no complaints Respiratory: no complaints Cardiovascular: no complaints Gastrointestinal: no complaints Genitourinary: no complaints Musculoskeletal: no complaints, other (used to have diffus myalgia) Skin: no complaints Neurologic: no complaints Exam/Review of Systems Exam Vitals Vital Signs Date Temp Pulse Resp B/P (MAP) Pulse Ox O2 O2 Flow FiO2 Time Delivery Rate 01/06/19 107 17:15 01/06/19 97.9 17 160/98 95 15:36 (118) 01/06/19 Room Air 04:00 Intake and Output 01/05/19 01/05/19 01/06/19 1515:00 23:00 07:00 IntakeIntake Total 760 ml 200 ml 1300 ml OutputOutput Total 800 ml BalanceBalance 760 ml 200 ml 500 ml Constitutional: alert, oriented, well developed Psych: no complaints, nl mood/affect Head: normocephalic, atraumatic Eyes: nl conjunctiva, nl lids ENMT: nl external ears & nose, nl nasal mucosa & septum, mucosa pink and moist Neck: supple Respiratory: clear to auscultation, congested cough Cardiovascular: regular rate and rhythm, nl pulses Gastrointestinal: soft, non-tender Genitourinary - Female: other (no supra-pubic tenderness); No CVA tenderness Musculoskeletal: No swelling Extremities: No edema Neurological: 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 II-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 intact, nl mental status, nl speech, nl strength Skin: nl turgor; No rash or lesions Results Result Diagram: 01/06/19 0505 01/06/19 0505 Results 24hrs Laboratory Tests Test 01/05/19 21:35 01/06/19 01:32 01/06/19 05:05 01/06/19 07:47 Bedside Glucose 209 176 235 H White Blood Count 10.6 # Red Blood Count 5.40 Hemoglobin 13.0 Hematocrit 40.3 Mean Corpuscular 74.6 L Volume Mean Corpuscular 24.1 L Hemoglobin Mean Corpuscular 32.3 Hemoglobin Concent Red Cell 13.5 Distribution Width Platelet Count 474 #H Mean Platelet Volume 10.4 Immature 1.000 H Granulocytes % Neutrophils % 73.9 Lymphocytes % 13.9 L Monocytes % 8.4 Eosinophils % 2.0 Basophils % 0.8 Nucleated Red Blood 0.0 Cells % Immature 0.110 H Granulocytes # Neutrophils # 7.8 H Lymphocytes # 1.5 Monocytes # 0.9 Eosinophils # 0.2 Basophils # 0.1 Nucleated Red Blood 0.0 Cells # Sodium Level 137 Potassium Level 4.0 Chloride Level 100 Carbon Dioxide Level 23 Anion Gap 14 H Blood Urea Nitrogen 15 Creatinine 1.02 H Est Glomerular Filtrat Rate mL/min Glucose Level 264 #H Calcium Level 9.3 Test 01/06/19 12:06 01/06/19 17:33 Bedside Glucose 273 H 273 H Medications Medication Current Medications IV Flush (NS 3 ml) 3 ml PER PROTOCOL IV ; Start 01/03/19 at 15:30 Ondansetron HCl (Zofran Inj) 4 mg Q6H PRN IV NAUSEA/VOMITING; Start 01/03/19 at 15:30 Acetaminophen (Tylenol Tab) 650 mg Q6H PRN PO .PAIN 1-3 OR TEMP Last administe red on 01/05/19at 02:27; Admin Dose 650 MG; Start 01/03/19 at 15:30 Acetaminophen/ Hydrocodone Bitart ([place] (5/325)) 1 tab Q6H PRN PO .MOD PAIN 4- 6; Start 01/03/19 at 15:30 Morphine Sulfate (morphine) 2 mg Q4H PRN IV .SEVERE PAIN 7-10 Last administered on 01/03/19at 19:21; Admin Dose 2 MG; Start 01/03/19 at 15:30 Docusate Sodium (Colace) 100 mg Q12H PRN PO .CONSTIPATION; Start 01/03/19 at 15:30 Magnesium Hydroxide (Milk Of Mag) 30 ml DAILY PRN PO .CONSTIPATION; Start 01/03/19 at 15:30 Lorazepam (Ativan) 0.5 mg Q6H PRN IV ANXIETY; Start 01/03/19 at 15:30 Albuterol/ Ipratropium (Duoneb) 3 ml Q4H RESP THERAPY PRN HHN SHORTNESS OF BREATH; Start 01/03/19 at 15:30 Hydralazine HCl (Apresoline) 10 mg Q6H PRN IV ELEVATED BLOOD PRESSURE Last administered on 01/06/19at 12:08; Admin Dose 10 MG; Start 01/03/19 at 15:30 Nitroglycerin (Nitroglycerin (Sl Tab) 0.4 Mg) 1 tab Q5M PRN SL ANGINA; Start 01/03/19 at 15:30 Diagnostic Test (Pha) (Accu-Chek) 1 ea 02 XX Last administered on 01/04/19at 01:40; Admin Dose 1 EA; Start 01/04/19 at 02:00 Miscellaneous Information 1 ea NOTE XX ; Start 01/03/19 at 15:30 Glucose (Glutose) 15 gm Q15M PRN PO DECREASED GLUCOSE; Start 01/03/19 at 15:30 Glucose (Glutose) 22.5 gm Q15M PRN PO DECREASED GLUCOSE; Start 01/03/19 at 15:30 Dextrose (D50w Syringe) 25 ml Q15M PRN IV DECREASED GLUCOSE; Start 01/03/19 at 15:30 Dextrose (D50w Syringe) 50 ml Q15M PRN IV DECREASED GLUCOSE; Start 01/03/19 at 15:30 Glucagon (Glucagen) 1 mg Q15M PRN IM DECREASED GLUCOSE; Start 01/03/19 at 15:30 Glucose (Glutose) 15 gm Q15M PRN BUCCAL DECREASED GLUCOSE; Start 01/03/19 at 15:30 Loperamide HCl (Imodium Cap) 2 mg PRN PRN PO DIARRHEA Last administered on 01/04/19at 20:43; Admin Dose 2 MG; Start 01/03/19 at 22:00 Insulin Aspart (Novolog Insulin Pen) (Adult SC Insulin - Mild Algorithm)... AC MEALS AND BEDTIME SC Last administered on 01/06/19at 12:31; Admin Dose 4 UNIT; Start 01/05/19 at 07:00 Losartan Potassium (Cozaar) 50 mg BID PO Last administered on 01/06/19at 08:54; Admin Dose 50 MG; Start 01/05/19 at 21:00 Ertapenem 1 gm/ Sodium Chloride 100 ml @ 200 mls/hr Q24H IVPB ; Start 01/06/19 at 18:00; Status JHONATAN ORTIZ M.D. Jan 06, 2019 18:06
[2019-01-06] MEDS: ERTAPENEM SODIUM 1 GM in SOD CHLORIDE 0.9% 100 ML IVPB SCH (18:37)
[2019-01-07] VITALS (8 sets, daily range): BP systolic 125–154; BP diastolic 71–84; PULSE 92–116; RESP 16–18
[2019-01-07] MEDS: ACCU-CHEK XX SCH (02:00)
[2019-01-07] MEDS: Insulin NOVOLOG SS MILD Algorithm (SS with meals and bedtime) SC SCH ×4 (08:23→20:30)
[2019-01-07] MEDS: LOSARTAN 50 MG TAB PO SCH ×2 (09:30→20:24)
[2019-01-07] MEDS: metFORMIN 850 MG TAB PO SCH ×2 (11:53→17:33)
--- NOTE | 2019-01-07 12:00 | CONS ---
Assessment/Plan Assessment/Plan Hospital Course (Demo Recall) assessment/impression - severe sepsis due to UTI - UTI due to ESBL+E. coli, based on her history, community acquired case (no risk factors for acquiring MDROs) - DM - HTN recommendations - complete IV ertapenem tomorrow. IV ertapenem may be given at home by a home health service - I discussed prevention of UTI, risk of acquiring MDROs and their prevention were discussed with Pt and her daughter (a different daughter) - contact isolation - I discussed the management with Pt, her daughter Consultation Date/Type/Reason Admit Date/Time Jan 03, 2019 at 16:17 Initial Consult Date Type of Consult ID Requesting Provider: LISA CHAVEZ MD Date/Time of Note DATE: 01/07/19 TIME: 11:57 24 HR Interval Summary Constitutional: improved Detailed Summary Eyes: no complaints Respiratory: no complaints Cardiovascular: no complaints Gastrointestinal: no complaints Genitourinary: no complaints Musculoskeletal: no complaints Skin: no complaints Exam/Review of Systems Exam Vitals Vital Signs Date Temp Pulse Resp B/P (MAP) Pulse Ox O2 O2 Flow FiO2 Time Delivery Rate 01/07/19 98.6 101 16 145/72 94 11:14 (96) 01/06/19 Room Air 04:00 Intake and Output 01/06/19 01/06/19 01/07/19 1515:00 23:00 07:00 IntakeIntake Total 1350 ml 100 ml BalanceBalance 1350 ml 100 ml Constitutional: alert, oriented, well developed Psych: no complaints, nl mood/affect Head: normocephalic, atraumatic Eyes: nl conjunctiva, nl lids ENMT: nl external ears & nose, nl nasal mucosa & septum Neck: non-tender Respiratory: normal air movement Cardiovascular: No edema Gastrointestinal: soft; No distended Musculoskeletal: nl extremities to inspection Extremities: No edema Results Result Diagram: 01/07/19 0532 01/07/19 0532 Results 24hrs Laboratory Tests Test 01/06/19 12:06 01/06/19 17:33 01/06/19 20:42 01/07/19 02:21 Bedside Glucose 273 H 273 H 235 H 211 Test 01/07/19 05:32 01/07/19 08:13 01/07/19 11:50 White Blood Count 10.1 Red Blood Count 5.19 Hemoglobin 12.5 Hematocrit 38.1 Mean Corpuscular 73.4 L Volume Mean Corpuscular 24.1 L Hemoglobin Mean Corpuscular 32.8 Hemoglobin Concent Red Cell 13.5 Distribution Width Platelet Count 479 H Mean Platelet Volume 9.9 Immature 3.800 H Granulocytes % Neutrophils % 49.9 Lymphocytes % 24.7 Monocytes % 14.0 H Eosinophils % 6.4 Basophils % 1.2 Nucleated Red Blood 0.0 Cells % Immature 0.380 H Granulocytes # Neutrophils # 5.1 Lymphocytes # 2.5 Monocytes # 1.4 H Eosinophils # 0.7 H Basophils # 0.1 Nucleated Red Blood 0.0 Cells # Sodium Level 137 Potassium Level 3.9 Chloride Level 103 Carbon Dioxide Level 22 Anion Gap 12 Blood Urea Nitrogen 14 Creatinine 1.06 H Est Glomerular Filtrat Rate mL/min Glucose Level 221 H Calcium Level 9.6 Bedside Glucose 237 H 269 H Medications Medication Current Medications IV Flush (NS 3 ml) 3 ml PER PROTOCOL IV ; Start 01/03/19 at 15:30 Ondansetron HCl (Zofran Inj) 4 mg Q6H PRN IV NAUSEA/VOMITING; Start 01/03/19 at 15:30 Acetaminophen (Tylenol Tab) 650 mg Q6H PRN PO .PAIN 1-3 OR TEMP Last adm inistered on 01/05/19at 02:27; Admin Dose 650 MG; Start 01/03/19 at 15:30 Acetaminophen/ Hydrocodone Bitart ([place] (5/325)) 1 tab Q6H PRN PO .MOD PAIN 4- 6; Start 01/03/19 at 15:30 Morphine Sulfate (morphine) 2 mg Q4H PRN IV .SEVERE PAIN 7-10 Last administered on 01/03/19at 19:21; Admin Dose 2 MG; Start 01/03/19 at 15:30 Docusate Sodium (Colace) 100 mg Q12H PRN PO .CONSTIPATION; Start 01/03/19 at 15:30 Magnesium Hydroxide (Milk Of Mag) 30 ml DAILY PRN PO .CONSTIPATION; Start 01/03/19 at 15:30 Lorazepam (Ativan) 0.5 mg Q6H PRN IV ANXIETY; Start 01/03/19 at 15:30 Albuterol/ Ipratropium (Duoneb) 3 ml Q4H RESP THERAPY PRN HHN SHORTNESS OF BREATH; Start 01/03/19 at 15:30 Hydralazine HCl (Apresoline) 10 mg Q6H PRN IV ELEVATED BLOOD PRESSURE Last administered on 01/06/19at 12:08; Admin Dose 10 MG; Start 01/03/19 at 15:30 Nitroglycerin (Nitroglycerin (Sl Tab) 0.4 Mg) 1 tab Q5M PRN SL ANGINA; Start 01/03/19 at 15:30 Diagnostic Test (Pha) (Accu-Chek) 1 ea 02 XX Last administered on 01/04/19at 01:40; Admin Dose 1 EA; Start 01/04/19 at 02:00 Miscellaneous Information 1 ea NOTE XX ; Start 01/03/19 at 15:30 Glucose (Glutose) 15 gm Q15M PRN PO DECREASED GLUCOSE; Start 01/03/19 at 15:30 Glucose (Glutose) 22.5 gm Q15M PRN PO DECREASED GLUCOSE; Start 01/03/19 at 15:30 Dextrose (D50w Syringe) 25 ml Q15M PRN IV DECREASED GLUCOSE; Start 01/03/19 at 15:30 Dextrose (D50w Syringe) 50 ml Q15M PRN IV DECREASED GLUCOSE; Start 01/03/19 at 15:30 Glucagon (Glucagen) 1 mg Q15M PRN IM DECREASED GLUCOSE; Start 01/03/19 at 15:30 Glucose (Glutose) 15 gm Q15M PRN BUCCAL DECREASED GLUCOSE; Start 01/03/19 at 15:30 Loperamide HCl (Imodium Cap) 2 mg PRN PRN PO DIARRHEA Last administered on 01/04/19at 20:43; Admin Dose 2 MG; Start 01/03/19 at 22:00 Insulin Aspart (Novolog Insulin Pen) (Adult SC Insulin - Mild Algorithm)... AC MEALS AND BEDTIME SC Last administered on 01/07/19at 08:23; Admin Dose 3 UNIT; Start 01/05/19 at 07:00 Losartan Potassium (Cozaar) 50 mg BID PO Last administered on 01/07/19at 09:30; Admin Dose 50 MG; Start 01/05/19 at 21:00 Ertapenem 1 gm/ Sodium Chloride 100 ml @ 200 mls/hr Q24H IVPB Last administered on 01/06/19at 18:37; Admin Dose 200 MLS/HR; Start 01/06/19 at 18:00; Stop 01/09/19 at 17:59 Metformin HCl (Glucophage) 850 mg BID WITH MEALS PO ; Start 01/07/19 at 10:30 JHONATAN AGUILAR M.D. Jan 07, 2019 12:00
--- NOTE | 2019-01-07 14:36 | PN ---
Date/Time of Note Date/Time of Note DATE: 01/07/19 TIME: 14:32 Assessment/Plan VTE Prophylaxis Risk score (from Nsg)>0 risk: 3 SCD applied (from Nsg): No SCD contraindicated: other (no) Pharmacological prophylaxis: NA/contraindicated Pharm contraindication: low risk/ambulating Lines/Catheters IV C[facility] Peripheral IV Assessment/Plan Assessment/Plan 78-year-old female with nausea, vomiting, diarrhea symptoms, fevers and chills for a couple days prior to admission with signs of sepsis secondary to UTI. 1. Severe sepsis secondary to UTI -slowly improving, no fevers overnight, white blood cell count trending down. Patient presented with white blood cell count, fevers and elevated lactic acid and tachycardia. Her UA is positive. - Urine culture growing ESBL E Coli. Per ID, will plan for 3 days of ertapenem. 2. History of diabetes: A1c= 8.6. - Continue sliding scale insulin. 3. Hypertension. Blood pressure stable. -Monitor, continue to hold home losartan given her mild renal insufficiency. She will be on hydralazine p.r.n. 4. Renal insufficiency-improving, unknown baseline creatinine. -Continue IV fluids. Follow up BUN and creatinine levels in the morning. 5. History of arthritis. PT eval and pain control medications p.r.n. 6. Prior history of recurrent UTIs. Dispo: discharge home tomorrow after ertapenem dose Result Diagram: 01/07/19 0532 01/07/19 0532 Subjective 24 Hr Interval Summary Free Text/Dictation No acute overnight events. Patient feeling well. Exam/Review of Systems Exam Vitals Vital Signs Date Temp Pulse Resp B/P (MAP) Pulse Ox O2 O2 Flow FiO2 Time Delivery Rate 01/07/19 101 12:40 01/07/19 98.6 16 145/72 94 11:14 (96) 01/06/19 Room Air 04:00 Intake and Output 01/06/19 01/06/19 01/07/19 1515:00 23:00 07:00 IntakeIntake Total 1350 ml 100 ml BalanceBalance 1350 ml 100 ml Exam GENERAL: Sitting up in bed awake and alert. HEENT: Pupils equal, round, and reactive to light. Extraocular muscles intact. NECK: Supple, no thyromegaly. LUNGS: Clear to auscultation bilaterally. CARDIOVASCULAR: S1, S2 heard. No rubs or gallops. Tachycardic heart rate. ABDOMEN: Soft, nontender, nondistended. Normal bowel sounds. No rebound or guarding. MUSCULOSKELETAL: No lower extremity edema bilaterally. Results Results 24hrs Laboratory Tests Test 01/06/19 17:33 01/06/19 20:42 01/07/19 02:21 01/07/19 05:32 Bedside Glucose 273 H 235 H 211 White Blood Count 10.1 Red Blood Count 5.19 Hemoglobin 12.5 Hematocrit 38.1 Mean Corpuscular 73.4 L Volume Mean Corpuscular 24.1 L Hemoglobin Mean Corpuscular 32.8 Hemoglobin Concent Red Cell 13.5 Distribution Width Platelet Count 479 H Mean Platelet Volume 9.9 Immature 3.800 H Granulocytes % Neutrophils % 49.9 Lymphocytes % 24.7 Monocytes % 14.0 H Eosinophils % 6.4 Basophils % 1.2 Nucleated Red Blood 0.0 Cells % Immature 0.380 H Granulocytes # Neutrophils # 5.1 Lymphocytes # 2.5 Monocytes # 1.4 H Eosinophils # 0.7 H Basophils # 0.1 Nucleated Red Blood 0.0 Cells # Sodium Level 137 Potassium Level 3.9 Chloride Level 103 Carbon Dioxide Level 22 Anion Gap 12 Blood Urea Nitrogen 14 Creatinine 1.06 H Est Glomerular Filtrat Rate mL/min Glucose Level 221 H Calcium Level 9.6 Test 01/07/19 08:13 01/07/19 11:50 Bedside Glucose 237 H 269 H Medications Medication Current Medications IV Flush (NS 3 ml) 3 ml PER PROTOCOL IV ; Start 01/03/19 at 15:30 Ondansetron HCl (Zofran Inj) 4 mg Q6H PRN IV NAUSEA/VOMITING; Start 01/03/19 at 15:30 Acetaminophen (Tylenol Tab) 650 mg Q6H PRN PO .PAIN 1-3 OR TEMP Last administered on 01/05/19at 02:27; Admin Dose 650 MG; Start 01/03/19 at 15:30 Acetaminophen/ Hydrocodone Bitart ([place] (5/325)) 1 tab Q6H PRN PO .MOD PAIN 4- 6; Start 01/03/19 at 15:30 Morphine Sulfate (morphine) 2 mg Q4H PRN IV .SEVERE PAIN 7-10 Last administered on 01/03/19at 19:21; Admin Dose 2 MG; Start 01/03/19 at 15:30 Docusate Sodium (Colace) 100 mg Q12H PRN PO .CONSTIPATION; Start 01/03/19 at 15:30 Magnesium Hydroxide (Milk Of Mag) 30 ml DAILY PRN PO .CONSTIPATION; Start 01/03/19 at 15:30 Lorazepam (Ativan) 0.5 mg Q6H PRN IV ANXIETY; Start 01/03/19 at 15:30 Albuterol/ Ipratropium (Duoneb) 3 ml Q4H RESP THERAPY PRN HHN SHORTNESS OF BREATH; Start 01/03/19 at 15:30 Hydralazine HCl (Apresoline) 10 mg Q6H PRN IV ELEVATED BLOOD PRESSURE Last administered on 01/06/19at 12:08; Admin Dose 10 MG; Start 01/03/19 at 15:30 Nitroglycerin (Nitroglycerin (Sl Tab) 0.4 Mg) 1 tab Q5M PRN SL ANGINA; Start 01/03/19 at 15:30 Diagnostic Test (Pha) (Accu-Chek) 1 ea 02 XX Last administered on 01/04/19at 01:40; Admin Dose 1 EA; Start 01/04/19 at 02:00 Miscellaneous Information 1 ea NOTE XX ; Start 01/03/19 at 15:30 Glucose (Glutose) 15 gm Q15M PRN PO DECREASED GLUCOSE; Start 01/03/19 at 15:30 Glucose (Glutose) 22.5 gm Q15M PRN PO DECREASED GLUCOSE; Start 01/03/19 at 15:30 Dextrose (D50w Syringe) 25 ml Q15M PRN IV DECREASED GLUCOSE; Start 01/03/19 at 15:30 Dextrose (D50w Syringe) 50 ml Q15M PRN IV DECREASED GLUCOSE; Start 01/03/19 at 15:30 Glucagon (Glucagen) 1 mg Q15M PRN IM DECREASED GLUCOSE; Start 01/03/19 at 15:30 Glucose (Glutose) 15 gm Q15M PRN BUCCAL DECREASED GLUCOSE; Start 01/03/19 at 15:30 Loperamide HCl (Imodium Cap) 2 mg PRN PRN PO DIARRHEA Last administered on 01/04/19at 20:43; Admin Dose 2 MG; Start 01/03/19 at 22:00 Insulin Aspart (Novolog Insulin Pen) (Adult SC Insulin - Mild Algorithm)... AC MEALS AND BEDTIME SC Last administered on 01/07/19at 12:09; Admin Dose 4 UNIT; Start 01/05/19 at 07:00 Losartan Potassium (Cozaar) 50 mg BID PO Last administered on 01/07/19at 09:30; Admin Dose 50 MG; Start 01/05/19 at 21:00 Ertapenem 1 gm/ Sodium Chloride 100 ml @ 200 mls/hr Q24H IVPB Last administered on 01/06/19at 18:37; Admin Dose 200 MLS/HR; Start 01/06/19 at 18:00; Stop 01/09/19 at 17:59 Metformin HCl (Glucophage) 850 mg BID WITH MEALS PO Last administered on 01/07/19at 11:53; Admin Dose 850 MG; Start 01/07/19 at 10:30 LISA CHAVEZ MD Jan 07, 2019 14:36
[2019-01-07] MEDS: ERTAPENEM SODIUM 1 GM in SOD CHLORIDE 0.9% 100 ML IVPB SCH (17:51)
[2019-01-08] VITALS: BP 122/63; PULSE 105; RESP 18
[2019-01-08] MEDS: ACCU-CHEK XX SCH (02:14)
[2019-01-08 04:00] VITALS: BP 115/58; PULSE 106; RESP 18
[2019-01-08 07:05] VITALS: BP 141/79; PULSE 107; RESP 18
[2019-01-08] MEDS: Insulin NOVOLOG SS MILD Algorithm (SS with meals and bedtime) SC SCH ×3 (07:30→11:30)
[2019-01-08 08:00] VITALS: BP_SYST 159; BP_SYST 98; BP_DIAS 54; BP_DIAS 80; PULSE 80; PULSE 94; RESP 17; RESP 18
[2019-01-08] MEDS: LOSARTAN 50 MG TAB PO SCH (10:01)
[2019-01-08] MEDS: metFORMIN 850 MG TAB PO SCH (10:23)
[2019-01-08 14:00] VITALS: BP 156/96; PULSE 83; RESP 17
--- NOTE | 2019-01-08 15:16 | PDOCDIS ---
Discharge Instructions DIAGNOSIS Discharge Diagnosis ESBL E Coli UTI CONDITION [id number] Patient Condition: [id number] Good HOME CARE INSTRUCTIONS: [id number] Diet Instructions: [id number] Regular ACTIVITY: [id number] Activity Restrictions: [id number] No Restrictions FOLLOW UP/APPOINTMENTS Follow-up Plan 1. Take all medications as prescribed. 2. See your primary care doctor in 1-2 weeks. LISA CHAVEZ MD Jan 08, 2019 15:16
[2019-01-08] MEDS: ERTAPENEM SODIUM 1 GM in SOD CHLORIDE 0.9% 100 ML IVPB SCH (15:50)
--- NOTE | 2019-01-08 17:12 | DS ---
Date/Time of Note Date/Time of Note DATE: 01/08/19 TIME: 17:11 Discharge Summary Admission/Discharge Info Admit Date/Time Jan 03, 2019 at 16:17 Discharge Date/Time Jan 08, 2019 Discharge Diagnosis ESBL E Coli UTI Patient Condition: Good Consults Dr. Parker, infectious disease Procedures None Hx of Present Illness CHIEF COMPLAINT: Fever, chills and diarrhea and nausea. HISTORY OF PRESENT ILLNESS: A 78-year-old female with past medical history of prior stroke, diabetes, hypertension, questionable history of UTIs in the past who has been having some diarrhea symptoms along with some nonbilious, nonbloody nausea, vomiting symptoms have been going on for the last couple of days. She also complained of some loose stools, also some positive subjective fevers and chills. She denies any recent sick contacts or travels. Denied any upper or lower GI bleeding, no chest pain, shortness of breath. She decided to come in to the ER today because of her symptoms. When she came in, she was found with elevated white blood cell count of 19.7. She also had fever of 103.4 and her UA was positive for signs of UTI and was started on antibiotics in the ER. PAST MEDICAL HISTORY: As above. ALLERGIES: NO KNOWN DRUG ALLERGIES. MEDICATIONS AT HOME: 1. Metformin 850 mg b.i.d. 2. Losartan, unknown dose. PAST SURGICAL HISTORY: Apparently none. FAMILY HISTORY: Noncontributory. SOCIAL HISTORY: Negative for smoking or drinking, or IV drug abuse. Hospital Course She was started on empiric Zosyn. Symptoms improved quickly and she was back to baseline in a few days. Urine culture grew ESBL E Coli. Per infectious disease recommendations, treated with 3 days IV ertapenem. On day of discharge patient got last dose and went home with family. Home Meds Reported Medications Losartan Potassium* (Losartan Potassium*) Unknown Strength Tablet, PO BID, TAB PT GETS MEDS FROM [facility] SHE DOSNT KNOW THE STRENGTH 01/03/19 Metformin Hcl* (Metformin Hcl*) 850 Mg Tablet, 850 MG PO WITH BREAKFAST DINNE, #60 TAB 01/03/19 Follow-up Plan 1. Take all medications as prescribed. 2. See your primary care doctor in 1-2 weeks. Primary Care Provider Care Physician No Primary Time spent on discharge: > 30 minutes Pending Labs Laboratory Tests Test 01/07/19 17:29 01/07/19 20:23 01/08/19 01:54 01/08/19 05:27 Bedside 212 247 172 Glucose mg/dL (70-220) mg/dL (70-220) mg/dL (70-220) White Blood 12.8 Count 10^3/ul (4.8-1 0.8) Red Blood 4.95 Count 10^6/ul (4.20- 5.40) Hemoglobin 12.0 g/dl (12.0-16. 0) Hematocrit 37.3 % (37.0-47.0) Mean 75.4 Corpuscular fl (82.0-101.0 Volume ) Mean 24.2 Corpuscular pg (29.0-33.0) Hemoglobin Mean 32.2 Corpuscular g/dl (32.0-37. Hemoglobin Conc 0) ent Red Cell 13.8 Distribution % (11.5-14.5) Width Platelet Count 487 10^3/UL (140-4 15) Mean Platelet 10.2 Volume fl (7.4-10.4) Immature 8.100 Granulocytes % % (0.001-0.429 ) Neutrophils % % (39.0-77.0) Segmented 53 % (39-77) Neutrophils % (Manual) Band 4 % (0-4) Neutrophils % (Manual) Lymphocytes % % (15.0-51.0) Lymphocytes % 20 % (15-51) (Manual) Monocytes % % (0.0-11.0) Monocytes % 15 % (0-11) (Manual) Eosinophils % % (0.0-7.0) Eosinophils % 4 % (0-7) (Manual) Basophils % % (0.0-2.0) Myelocytes % 3 % (0-0) (Manual) Promyelocytes % 1 % (0-0) (Manual) Nucleated Red 0.0 Blood Cells % /100WBC (0.0-0 .0) Immature 1.040 Granulocytes # 10^3/ul (0.0-0 .031) Neutrophils # 10^3/ul (1.6-7 .5) Neutrophils # 6.8 (Manual) 10^3/ul (1.6-7 .5) Band 0.5 Neutrophils # 10^3/ul (0.0-0 .6) Lymphocytes 2.5 (Manual) 10^3/ul (0.8-2 .9) Lymphocytes # 10^3/ul (0.8-2 .9) Monocytes # 10^3/ul (0.3-0 .9) Monocytes # 1.9 (Manual) 10^3/ul (0.3-0 .9) Eosinophils # 10^3/ul (0.0-0 .5) Basophils # 10^3/ul (0.0-0 .1) Myelocytes # 0.3 10^3/ul (0.0-0 .0) Promyelocytes 0.1 # 10^3/ul (0-0) Nucleated Red 10^3/ul (0.0-0 Blood Cells # .0) Platelet NORMAL Estimate Giant Platelets 3 % (0-0) Polychromasia 1+ (0-0) Poikilocytosis 2+ (0-0) Anisocytosis 1+ (0-0) Microcytosis 1+ (0-0) Sodium Level 139 mmol/L (135-14 4) Potassium 4.0 Level mmol/L (3.5-5. 1) Chloride Level 105 mmol/L (97-110 ) Carbon Dioxide 23 Level mmol/L (21-31) Anion Gap 11 (5-13) Blood Urea 20 Nitrogen mg/dl (7-20) Creatinine 1.27 mg/dl (0.44-1. 00) Est Glomerular mL/min (>60) Filtrat Rate mL/min Glucose Level 170 mg/dl (70-220) Calcium Level 9.5 mg/dl (8.4-10. 2) Test 01/08/19 10:21 Bedside 193 Glucose mg/dL (70-220) LISA CHAVEZ MD Jan 08, 2019 17:12
== END 2019-01-08 17:15 | disposition home or self-care (01) | DRG 872 ==
LOC: E/R 11:06 → 6WM 16:17 → PP2 01-08 06:50
PROVIDERS: ADMIT Hospitalist; ATTEND Internal Medicine
DX: A41.9 Sepsis, unspecified organism (principal); N39.0 Urinary tract infection, site not specified; R65.20 Severe sepsis without septic shock; E11.9 Type 2 diabetes mellitus without complications; I10 Essential (primary) hypertension; N28.9 Disorder of kidney and ureter, unspecified; M19.90 Unspecified osteoarthritis, unspecified site; B96.20 Unspecified Escherichia coli [E. coli] as the cause of diseases classified elsewhere; Z16.12 Extended spectrum beta lactamase (ESBL) resistance; Z87.440 Personal history of urinary (tract) infections; Z86.73 Personal history of transient ischemic attack (TIA), and cerebral infarction without residual deficits; Z79.84 Long term (current) use of oral hypoglycemic drugs
CPT/HCPCS: 36415; 71045; 80048; 80053; 80061; 81001; 82962; 83036; 83540; 83605; 83735; 84100; 84439; 84443; 84484; 85025; 85610; 85730; 87045; 87075; 87086; 93005; 96365; 96375; 97116; 97162; 97530; J0360; J0692; J1335; J1815; J1885; J2270; J3370; J3475; J7030